=== PATIENT | male | born 1975 | race Caucasian/White ===

== ENCOUNTER 2017-05-18 02:17 | Observation (INO) ==
[2017-05-18] MEDS ORDERED: 0.9 % Sodium Chloride 1,000 ML IVC ONE ×2 (02:54→05:27)
[2017-05-18 02:56] LABS: Basophils % 0.5 %; Eosinophils # 0.1 K/mcL (0.0-0.6); Eosinophils % 1.8 %; Hematocrit 45.6 % (37.5-50.1); Hemoglobin 16.1 g/dL (12.9-16.9); Immature Granulocytes % 0.4 % (0-4); Lymphocytes # 2.5 K/mcL (0.6-4.6); Lymphocytes % 34.1 %; Mean Corpuscular HGB Conc 35.3 g/dL (31.6-35.5); Mean Corpuscular Hemoglobin 31.2 pg (28.0-33.3); Mean Corpuscular Volume 88.4 fL (83.0-100.0); Monocytes # 0.6 K/mcL (0.0-1.3); Monocytes % 7.7 %; Neutrophils # 4.1 K/mcL (1.6-8.9); Platelet Count 187 K/mcL (140-400); Red Blood Count 5.16 M/mcL (4.19-5.50); Red Cell Distribution Width 12.2 % (11.5-14.5); Segmented Neutrophils % 55.5 %
[2017-05-18 03:00] LABS: Bilirubin,Urine Negative (Negative); Blood,Urine Negative (Negative); Clarity,Urine Clear (Clear); Color,Urine Yellow (Yellow); Glucose,Urine (UA) >=1000 mg/dL (Normal); Ketones,Urine Negative (Negative); Leukocyte Esterase,Urine Negative (Negative); Nitrite,Urine Negative (Negative); Protein,Urine Negative (Neg-Trace); Specific Gravity,Urine > 1.030 (1.010-1.025); Urobilinogen,Urine Normal (Normal)
[2017-05-18 03:09] LABS: BUN/Creatinine Ratio 23 (6-26); Blood Urea Nitrogen 22 mg/dL (6-20); Calcium 9.1 mg/dL (8.6-10.3); Carbon Dioxide 24 mEq/L (23-29); Chloride 95 mEq/L (98-107); Glucose 669 mg/dL (70-105); Osmolality,Calculated 299 (280-300); Potassium 3.7 mEq/L (3.5-5.1); Sodium 127 mEq/L (136-145); eGFR For African Americans > 60 (> 60); eGFR For Non-African Americans > 60 (> 60)
[2017-05-18 03:12] LABS: VBG HCO3 26 mEq/L (21-27); VBG PCO2 42 mmHg (41-51); VBG PO2 121 mmHg (25-50)
[2017-05-18 04:06] LABS: Alanine Aminotransferase 26 Units/L (7-52); Albumin 3.8 g/dL (3.5-5.7); Albumin/Globulin Ratio 1.2 (1.1-2.2); Alkaline Phosphatase 149 Units/L (34-104); Aspartate Amino Transferase 18 Units/L (13-39); Bilirubin,Direct 0.1 mg/dL (0.0-0.2); Bilirubin,Indirect 0.2 mg/dL (0.0-1.2); Bilirubin,Total 0.3 mg/dL (0.3-1.0); Globulin 3.3 g/dL (2.4-3.5); Total Protein 7.1 g/dL (6.4-8.9)
[2017-05-18] MEDS ORDERED: *HR* FentaNYL (PF) 100 MCG/2 ML VIAL IVP ONE (05:27)
[2017-05-18] MEDS ORDERED: *HR* Dextrose 50 % in Water (Syg) 50 ML SYRINGE IVP PRN ×2 (05:28→10:37)
[2017-05-18] MEDS ORDERED: Insulin Human Regular 100 UNIT in 0.9 % Sodium Chloride 100 ML IVC SCH (05:30)
--- NOTE | 2017-05-18 05:34 | Emergency Department Note ---
Disposition Clinical Impression: Neurological symptoms, Hyperglycemia, Esophageal spasm Disposition: Admitted As Inpatient Condition: Fair Referrals: Mark Joshua [Primary Care Provider] - Forms: Work/School Release, ED Satisfaction Letter Neuro HPI - General Chief Complaint: ED Neuro Symptoms/Deficit Stated Complaint: generalized weekness for 2 weeks Time Seen by Provider: 05/18/17 02:53 Source: patient, family, EMS Mode of arrival: EMS Limitations: no limitations Nursing Notes Reviewed: Yes Vital Signs Reviewed: Yes - History of Present Illness HPI Narrative: Patient presents for evaluation of worsening neurologic symptoms. Patient states she has had symptoms for 2 weeks. Patient's symptoms have been somewhat intermittent with waxing and waning episodes of weakness to lower extremities. He describes bilateral lower extremity weakness as well as left upper extremity weakness. Left leg is worse than the right leg. The patient states that he initially had symptoms couple weeks ago with trying to get up out of a chair and get around. They have been continuing to monitor the symptoms but tonight he had worsening difficulty. Patient describes no pain. Patient has no cranial nerve deficits. The patient has sensation intact. No loss of bowel or bladder. No fevers. Patient is had no trauma. The patient has had no recent viral illness. Patient describes weakness as not ascending or descending. The patient is concerned because his mother was diagnosed with ALS at age 45. The patient does have absent reflexes and concern for mild clonus to lower extremities. Patient is going to likely need further neurologic evaluation within the hospital setting. CT scan of the head as well as blood work will be performed. - Related Data Home Medications: Home Medications Medication Instructions Recorded Confirmed Amitriptyline [Elavil] 50 mg PO HS 05/18/17 05/18/17 Baclofen [Lioresal] 10 mg PO TID 05/18/17 05/18/17 Diltiazem [Cardizem] 30 mg PO TID 05/18/17 05/18/17 Omeprazole [PriLOSEC] 40 mg PO BID 05/18/17 05/18/17 diazePAM [Valium] 10 mg PO Q6H 05/18/17 05/18/17 Allergies/Adverse Reactions: Allergies Allergy/AdvReac Type Severity Reaction Status Date / Time acetaminophen [From Vicodin] Allergy Itching Verified 12/13/16 00:41 hydrocodone [From Vicodin] Allergy Itching Verified 12/13/16 00:41 metformin [From Glucophage] Allergy Abdominal Verified 12/13/16 00:41 Pain morphine Allergy Hives Verified 12/13/16 00:41 Review of Systems: CONSTITUTIONAL: No weight loss, fever, chills, weakness or fatigue. HEENT: Eyes: No visual changes. Ears, Nose, Throat: No hearing loss, difficulty talking or unable to swallow. SKIN: No rash or itching. CARDIOVASCULAR: No chest pain, chest pressure or chest discomfort. No palpitations or edema. RESPIRATORY: No shortness of breath, cough or sputum. GASTROINTESTINAL: No anorexia, nausea, vomiting or diarrhea. No abdominal pain or blood. GENITOURINARY: No burning on urination or hematuria. NEUROLOGICAL: Lower extremity and left upper extremity weakness No headache, dizziness, syncope. No change in bowel or bladder control. MUSCULOSKELETAL: No muscle pain, back pain, joint pain or stiffness. Past Medical History - Past Medical History Medical history: Reports: diabetes, GERD, other Psychiatric history: Reports: anxiety, depression - Social History Smoking Status: Current some day smoker Alcohol use: Reports: none Drug use: Reports: none Physical Exam General appearance: NAD, conversant Eyes: anicteric sclerae, moist conjunctivae; PERRL HENT: Atraumatic; oropharynx clear with moist mucous membranes and no mucosal ulcerations Neck: Normal inspection; Trachea midline; FROM, supple Lungs: CTA, with normal respiratory effort and no intercostal retractions CV: RRR, no MRGs Abdomen: Soft, non-tender; no rebound or gaurding Extremities: No peripheral edema or extremity lymphadenopathy Skin: Normal temperature; no rash, ulcers or lesions Psych: Appropriate mood and affect Neuro: alert and oriented to person, place and time; patient has no cranial nerve deficits. 2 through 12 intact. Patient has no sensation deficits throughout the upper and lower extremities. Patient has muscle weakness 4 out of 5 to the left upper extremity. 5 out of 5 strength to the right upper extremity. Patient has 4/5 to the right lower extremity. 3 out of 5 strength to the left lower extremity. Absent reflexes to the lower extremities. - General General appearance: alert, in no apparent distress Course - Reevaluation(s) Reevaluation #1: No significant change in patient's course during hospital stay. Patient will need further neurologic evaluation as well as workup. Insulin drip started. Fluids given. - Consultations Consultation #1: Discussed with hospitalist. Pt accepted for admission. Vital Signs Temperature 98.3 F 05/18/17 02:19 Pulse Rate 100 05/18/17 02:19 Respiratory Rate 16 05/18/17 02:19 Blood Pressure 145/94 05/18/17 02:19 O2 Sat by Pulse Oximetry 95 05/18/17 02:19 Temperature 98.3 F 05/18/17 02:19 Pulse Rate 89 05/18/17 07:25 Respiratory Rate 16 05/18/17 07:25 Blood Pressure 129/88 05/18/17 07:25 O2 Sat by Pulse Oximetry 95 05/18/17 07:25 Oxygen Delivery Oxygen Delivery Room Air Neuro Symptoms/Deficit - Medical Records Medical records reviewed: Yes I reviewed the patient's medical records. - Lab Data Lab results reviewed: Yes I reviewed the patient's lab results. Result diagrams: 05/18/17 02:30 05/18/17 02:30 Lab Results 05/18/17 05/18/17 05/18/17 Range/Units 02:23 02:25 02:30 WBC (4.3-11.1) K/mcL RBC (4.19-5.50) M/mcL Hgb (12.9-16.9) g/dL Hct (37.5-50.1) % MCV (83.0-100.0) fL MCH (28.0-33.3) pg MCHC (31.6-35.5) g/dL RDW (11.5-14.5) % Plt Count (140-400) K/mcL MPV (9.4-12.4) fL Immature Gran % (0-4) % Seg Neutrophils % % Lymphocytes % % Monocytes % % Eosinophils % % Basophils % % Neutrophils # (1.6-8.9) K/mcL Lymphocytes # (0.6-4.6) K/mcL Monocytes # (0.0-1.3) K/mcL Eosinophils # (0.0-0.6) K/mcL Basophils # (0.0-0.2) K/mcL VBG pH (7.32-7.42) pH Units VBG pCO2 (41-51) mmHg VBG pO2 (25-50) mmHg VBG HCO3 (21-27) mEq/L Sodium (136-145) mEq/L Potassium (3.5-5.1) mEq/L Chloride (98-107) mEq/L Carbon Dioxide (23-29) mEq/L BUN (6-20) mg/dL Creatinine (0.70-1.30) mg/dL Est GFR ( Amer) (> 60) Est GFR (Non-Af Amer) (> 60) BUN/Creatinine Ratio (6-26) Glucose (70-105) mg/dL POC Glucose > 600 H* > 600 H* (58-89) Calculated Osmolality (280-300) Calcium (8.6-10.3) mg/dL Total Bilirubin (0.3-1.0) mg/dL Direct Bilirubin (0.0-0.2) mg/dL Indirect Bilirubin (0.0-1.2) mg/dL AST (13-39) Units/L ALT (7-52) Units/L Alkaline Phosphatase (34-104) Units/L Serum Total Protein (6.4-8.9) g/dL Albumin (3.5-5.7) g/dL Globulin (2.4-3.5) g/dL Albumin/Globulin Ratio (1.1-2.2) Beta-Hydroxybutyric Acd (0.02-0.27) mmol/L Urine Color Yellow (Yellow) Urine Clarity Clear (Clear) Urine pH 7.0 (5.0-8.0) pH Units Ur Specific [place] > 1.030 H (1.010-1.025) Urine Protein Negative (Neg-Trace) mg/dL Urine Glucose (UA) >=1000 H (Normal) mg/dL Urine Ketones Negative (Negative) mg/dL Urine Blood Negative (Negative) Urine Nitrite Negative (Negative) Urine Bilirubin Negative (Negative) Urine Urobilinogen Normal (Normal) mg/dL Ur Leukocyte Esterase Negative (Negative) Ur Culture Indicated? NO (NO) 05/18/17 05/18/17 05/18/17 Range/Units 02:30 02:30 02:30 WBC 7.3 (4.3-11.1) K/mcL RBC 5.16 (4.19-5.50) M/mcL Hgb 16.1 (12.9-16.9) g/dL Hct 45.6 (37.5-50.1) % MCV 88.4 (83.0-100.0) fL MCH 31.2 (28.0-33.3) pg MCHC 35.3 (31.6-35.5) g/dL RDW 12.2 (11.5-14.5) % Plt Count 187 (140-400) K/mcL MPV 11.0 (9.4-12.4) fL Immature Gran % 0.4 (0-4) % Seg Neutrophils % 55.5 % Lymphocytes % 34.1 % Monocytes % 7.7 % Eosinophils % 1.8 % Basophils % 0.5 % Neutrophils # 4.1 (1.6-8.9) K/mcL Lymphocytes # 2.5 (0.6-4.6) K/mcL Monocytes # 0.6 (0.0-1.3) K/mcL Eosinophils # 0.1 (0.0-0.6) K/mcL Basophils # 0.0 (0.0-0.2) K/mcL VBG pH (7.32-7.42) pH Units VBG pCO2 (41-51) mmHg VBG pO2 (25-50) mmHg VBG HCO3 (21-27) mEq/L Sodium 127 L (136-145) mEq/L Potassium 3.7 (3.5-5.1) mEq/L Chloride 95 L (98-107) mEq/L Carbon Dioxide 24 (23-29) mEq/L BUN 22 H (6-20) mg/dL Creatinine 0.95 (0.70-1.30) mg/dL Est GFR ( Amer) > 60 (> 60) Est GFR (Non-Af Amer) > 60 (> 60) BUN/Creatinine Ratio 23 (6-26) Glucose 669 H* (70-105) mg/dL POC Glucose (58-89) Calculated Osmolality 299 (280-300) Calcium 9.1 (8.6-10.3) mg/dL Total Bilirubin 0.3 (0.3-1.0) mg/dL Direct Bilirubin 0.1 (0.0-0.2) mg/dL Indirect Bilirubin 0.2 (0.0-1.2) mg/dL AST 18 (13-39) Units/L ALT 26 (7-52) Units/L Alkaline Phosphatase 149 H (34-104) Units/L Serum Total Protein 7.1 (6.4-8.9) g/dL Albumin 3.8 (3.5-5.7) g/dL Globulin 3.3 (2.4-3.5) g/dL Albumin/Globulin Ratio 1.2 (1.1-2.2) Beta-Hydroxybutyric Acd 0.07 (0.02-0.27) mmol/L Urine Color (Yellow) Urine Clarity (Clear) Urine pH (5.0-8.0) pH Units Ur Specific [place] (1.010-1.025) Urine Protein (Neg-Trace) mg/dL Urine Glucose (UA) (Normal) mg/dL Urine Ketones (Negative) mg/dL Urine Blood (Negative) Urine Nitrite (Negative) Urine Bilirubin (Negative) Urine Urobilinogen (Normal) mg/dL Ur Leukocyte Esterase (Negative) Ur Culture Indicated? (NO) 05/18/17 05/18/17 05/18/17 Range/Units 03:09 06:28 07:02 WBC (4.3-11.1) K/mcL RBC (4.19-5.50) M/mcL Hgb (12.9-16.9) g/dL Hct (37.5-50.1) % MCV (83.0-100.0) fL MCH (28.0-33.3) pg MCHC (31.6-35.5) g/dL RDW (11.5-14.5) % Plt Count (140-400) K/mcL MPV (9.4-12.4) fL Immature Gran % (0-4) % Seg Neutrophils % % Lymphocytes % % Monocytes % % Eosinophils % % Basophils % % Neutrophils # (1.6-8.9) K/mcL Lymphocytes # (0.6-4.6) K/mcL Monocytes # (0.0-1.3) K/mcL Eosinophils # (0.0-0.6) K/mcL Basophils # (0.0-0.2) K/mcL VBG pH 7.40 (7.32-7.42) pH Units VBG pCO2 42 (41-51) mmHg VBG pO2 121 H (25-50) mmHg VBG HCO3 26 (21-27) mEq/L Sodium (136-145) mEq/L Potassium (3.5-5.1) mEq/L Chloride (98-107) mEq/L Carbon Dioxide (23-29) mEq/L BUN (6-20) mg/dL Creatinine (0.70-1.30) mg/dL Est GFR ( Amer) (> 60) Est GFR (Non-Af Amer) (> 60) BUN/Creatinine Ratio (6-26) Glucose (70-105) mg/dL POC Glucose 319 H 253 H (58-89) Calculated Osmolality (280-300) Calcium (8.6-10.3) mg/dL Total Bilirubin (0.3-1.0) mg/dL Direct Bilirubin (0.0-0.2) mg/dL Indirect Bilirubin (0.0-1.2) mg/dL AST (13-39) Units/L ALT (7-52) Units/L Alkaline Phosphatase (34-104) Units/L Serum Total Protein (6.4-8.9) g/dL Albumin (3.5-5.7) g/dL Globulin (2.4-3.5) g/dL Albumin/Globulin Ratio (1.1-2.2) Beta-Hydroxybutyric Acd (0.02-0.27) mmol/L Urine Color (Yellow) Urine Clarity (Clear) Urine pH (5.0-8.0) pH Units Ur Specific [place] (1.010-1.025) Urine Protein (Neg-Trace) mg/dL Urine Glucose (UA) (Normal) mg/dL Urine Ketones (Negative) mg/dL Urine Blood (Negative) Urine Nitrite (Negative) Urine Bilirubin (Negative) Urine Urobilinogen (Normal) mg/dL Ur Leukocyte Esterase (Negative) Ur Culture Indicated? (NO) - Radiology Data Radiology results reviewed: Yes I reviewed the patient's radiology results. Chest X-Ray 05/18/17 03:02 IMPRESSION: No acute cardiopulmonary abnormality. D/ / Catrachito Dwan MD / Catrachito Dawn MD Interpreting Provider: Catrachito Dawn MD Head CT 05/18/17 03:02 IMPRESSION: No acute intracranial abnormality or mass. If there ongoing concern for stroke, recommend further evaluation with MRI. D/ / Liam Stewart / Liam Stewart Interpreting Provider: Liam Stewart - EKG Data EKG attestation: Yes I reviewed and interpreted this EKG. EKG results narrative: Normal sinus rhythm with a heart rate of 97. No acute ischemic changes with no acute ST segment elevations or depressions. Critical Care Time Critical Care Time: Yes Total Critical Care Time: 40 Attestation: Critical care performed: Time is exclusive of separately billable procedures. Time includes: direct patient care, patient reassessment, coordination of patient care, interpretation of data (laboratory data, radiology data, and respiratory data), review of patient's medical records, medical consultation and documentation of patient care. Procedures included in critical care time: Procedures excluded from critical care time: Attestation Statement - Attestation Attestation: I, Los Elaine MD, personally evaluated this patient and discussed their management with the resident physician. I reviewed the resident's note and agree with the documented findings, medical decision making, and plan of care. 42-year-old male presents to the emergency department with a complaint of increasing generalized weakness in the lower extremities bilaterally in the left upper extremity. Symptoms started about 2 weeks ago. Onset was gradual and it has gradually progressed since onset. Patient states he had a similar episode previously but not as bad and it resolved spontaneously. No history of fall or injury. No back pain. No headaches. Patient states over the past 2 days it has gotten to the point that he is unable to walk due to the weakness in his lower extremities. No difficulty with urination or bowel movements. No fever. No numbness, just weakness. On examination patient is a well-developed well-nourished male in no acute distress. He is alert and oriented 3. There is no cyanosis or diaphoresis. Breath sounds are clear and equal bilaterally. Heart regular rate and rhythm. Abdomen soft and nontender with normal bowel sounds. 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 Marked weakness of the left lower extremity and he is barely able to lift it off the bed. Mild weakness of the right lower extremity DTRs are decreased in the lower extremities bilaterally. Sensation intact. Labs reviewed. Glucose 669. Chest x-ray negative. Head CT shows no acute intracranial abnormality. EKG shows a normal sinus rhythm with a heart rate of 97. No acute ST elevation or depression noted. Patient was placed on an insulin drip. The hospitalist was consulted and accepted admission of the patient.
[2017-05-18] MEDS ORDERED: 0.9 % Sodium Chloride 1,000 ML ONE (06:22)
[2017-05-18] MEDS ORDERED: 0.9 % Sodium Chloride 1,000 ML IVC SCH (06:45)
[2017-05-18] MEDS ORDERED: Naloxone 0.4 MG/ML INJ IVP PRN (08:37)
[2017-05-18] MEDS ORDERED: Ondansetron 4 MG/2 ML VIAL IVP PRN (08:37)
[2017-05-18] MEDS ORDERED: Ibuprofen 600 MG TABLET PO PRN (08:45)
--- NOTE | 2017-05-18 09:40 | Internal Med History&Physical ---
Date of Encounter: 05/18/17 Time of Encounter: 09:38 Assessment and Plan (1) Left-sided weakness Current visit: Yes Status: Acute Subacute onset over the last 2 weeks. Differential diagnosis includes stroke, GBS and tho unlikely there is a possibility of Alyssa Poon given his history of smoking. Could also be secondary to radiculopathy due to degenerative disc disease of the lumbar spine. We will obtain MRI of the brain, MRI of C-spine, T-spine and L-spine. Consult neurology. Continue with neuro checks. (2) Type 2 diabetes mellitus with hyperglycemia Current visit: Yes Status: Acute His initial blood glucose was greater than 600. He was not in DKA. He reports having type 2 diabetes diet control however admits to dietary indiscretion. I have counseled him regarding importance of diabetic diet. He initially received treatment with insulin drip. Currently his glucose is less than 150. We will start diabetic diet and insulin. Sliding scale. Qualifiers: Diabetes mellitus assistant terminal manager insulin use: without mcc use Qualified Code(s): E11.65 - Type 2 diabetes mellitus with hyperglycemia (3) Tobacco abuse Current visit: Yes Status: Acute I have advised smoking cessation and providing counseling. (4) DVT prophylaxis Current visit: Yes Status: Acute He has decreased mobility due to lower extremity weakness and possibility of stroke. He is at high risk for DVT and therefore will provide prophylaxis with Lovenox. (5) Hyperglycemia Current visit: Yes Status: Acute Internal Medicine - H&P: HPI Chief complaint: Lower extremity weakness Admitted From: Emergency Dept Plans for Post Hospital Care: Home History of present illness: Mr. Bucio is a 42 year old male with past medical history significant for esophageal spasm, diet-controlled diabetes mellitus, GERD, anxiety and depression who presented to the hospital for evaluation of bilateral lower extremity weakness that started 2 weeks ago. He reports progressive symptoms over the last 2 weeks predominantly involving the left lower extremity and left upper extremity. His weakness was severe in the lower extremities to the point where he could not walk, could not stand from a seated position and had to crawl to the bathroom. He denies associated bowel and bladder incontinence, headache, vision changes, denies associated fevers chills and skin rashes. Denies recent trauma, denies back pain and neck pain. Denies cough and shortness of breath but reports chronic, unchanged chest pain and difficulty swallowing related to his long-standing diagnosis of nutcracker esophagus. 10 point review of systems was negative except as described above. Surgical history: Carpal tunnel release on the left, esophageal surgery. Family history: Pertinent for ALS and the patient's mother who was diagnosed at age 45 and at age 51. 2 maternal uncles reportedly suffered with ALS. Patient's father suffered with stroke and throat cancer. Social history: He smokes 10 cigarettes a day, smokes marijuana to help with his esophageal spasm, denies intravenous drug use, does not drink alcohol. He is on disability. Past Med Surg Social Fam HX - Past Medical History Medical history: diabetes, GERD, other Psychiatric history: anxiety, depression - Social History Smoking Status: Current some day smoker Alcohol use: none Drug use: none - Family History Father Adopted: No Hx Family Cardiac Disorders: Yes (CAD, CABG, PAD) Hx Family Neurologic Disorders: Yes (CVA, multiple) Mother Living Status: Hx Family Neurologic Disorders: Yes (ALS diagnosed at the age of 45) Internal Medicine - H&P: Meds Amitriptyline [Elavil] 50 mg PO HS 05/18/17 [History] Baclofen [Lioresal] 10 mg PO TID 05/18/17 [History] Diltiazem [Cardizem] 30 mg PO TID 05/18/17 [History] Omeprazole [PriLOSEC] 40 mg PO BID 05/18/17 [History] diazePAM [Valium] 10 mg PO Q6H 05/18/17 [History] 3 Allergy/AdvReac Type Severity Reaction Status Date / Time acetaminophen [From Vicodin] Allergy Itching Verified 12/13/16 00:41 hydrocodone [From Vicodin] Allergy Itching Verified 12/13/16 00:41 metformin [From Glucophage] Allergy Abdominal Verified 12/13/16 00:41 Pain morphine Allergy Hives Verified 12/13/16 00:41 All Systems PM: A 10-system review of systems was performed and is negative for pertinent findings except as documented above in the HPI. - Constitutional Vitals: Temp Pulse Resp BP Pulse Ox 98.1 F 91 16 130/85 95 05/18/17 08:21 05/18/17 08:21 05/18/17 08:21 05/18/17 08:21 05/18/17 08:21 General appearance: Present: A&O X 3, no acute distress, answers questions appropriately - Head Head exam: Present: atraumatic, normocephalic - Eye Eye exam: Present: EOMI, PERRL, conjuntiva pink, sclera anicteric. Absent: conjunctival injection, nystagmus, periorbital swelling, scleral icterus Pupils: Present: PERRL - Neck Neck exam general surgery: Present: supple, trachea midline. Absent: lymphadenopathy - Respiratory Respiratory exam: Present: CTAB. Absent: accessory muscle use, rales, rhonchi, wheezes - Cardiovascular Cardiovascular exam: Present: RRR, +S1, +S2. Absent: diastolic murmur, gallop, rubs, systolic murmur - GI/Abdominal GI/Abdominal exam: Present: normal bowel sounds, soft, no peritoneal signs. Absent: distended, tenderness - Extremities Exam Extremities exam: Present: warm, radial pulses palpable and symmetrical. Absent : calf tenderness, cyanotic, pedal edema - Neurological Exam Neurological exam: Present: CN II-XII intact, oriented X3, reflexes normal, no focal deficits, pronater drift (Mild left upper extremity pronator drift). Absent: facial droop, speech deficit Additional comments: Sensation to light touch is intact. There is decreased left rug dyer strength. Decreased left lower extremity muscle strength 4/5 right lower extremity 5/5, Internal Med - H&P Results - Labs CBC & Chem 7: 05/19/17 03:50 05/19/17 03:50 - EKG Data -: EKG Interpreted by Myself EKG shows normal: sinus rhythm, ST-T waves
[2017-05-18 09:43] LABS: Hemoglobin A1C 8.4 %
[2017-05-18 09:51] LABS: BUN/Creatinine Ratio 25 (6-26); Blood Urea Nitrogen 19 mg/dL (6-20); Calcium 8.8 mg/dL (8.6-10.3); Carbon Dioxide 27 mEq/L (23-29); Chloride 106 mEq/L (98-107); Glucose 82 mg/dL (70-105); Magnesium 1.6 mg/dL (1.6-2.6); Osmolality,Calculated 289 (280-300); Phosphorous 3.3 mg/dL (2.7-4.5); Potassium 3.2 mEq/L (3.5-5.1); Sodium 139 mEq/L (136-145); eGFR For African Americans > 60 (> 60); eGFR For Non-African Americans > 60 (> 60)
[2017-05-18] MEDS ORDERED: Dextrose Gel 15 GM/37.5 ML TUBE PO PRN ×2 (10:37)
[2017-05-18] MEDS ORDERED: D5% in Water 1,000 ML IVC PRN (10:37)
--- NOTE | 2017-05-18 11:37 | Neurology - Consult Note ---
<Lorenzo Montoya - Last Filed: 05/18/17 15:05> Date of Encounter: 05/18/17 Time of Encounter: 11:00 Assessment and Plan (1) Left-sided weakness Current Visit: Yes Status: Acute Mr. Bucio presents with 2 weeks of progressive weakness in his left lower and left upper extremity. His symptoms demonstrate weakness with hip extension , knee flexion and dorsi flexion of his left lower extremity. He also demonstrates diminished sensation to light touch of his left upper and lower extremity with also abnormal feeling to dull and sharp pinprick to left upper and lower extremity. - Deep tendon reflexes are 2+ and bilateral brachial brachial radialis, triceps , patellar, Achilles with no clonus in bilateral lower extremities. - Cranial nerves II through XII intact, sensation in the trigeminal distribution is intact bilaterally Potential diminished sensation in left upper and lower extremities, associated with diminished hip extension and knee flexion and dorsiflexion of the left lower extremity are not specific. There is a significant history of ALS in his mother does pose a risk for neurologic origin, yet current symptoms do not completely correlate as they are one sided. Plan: - Continue to monitor symptoms. - Primary team has ordered MRI studies of the C,T,L spine and will await results. History of Present Illness Chief complaint: left sided weakness HPI: Mr. Bucio is a 42 year old male predominantly right-handed, with no significant past neurologic history presented to the emergency department with progressively of weakness in his left upper and lower extremities over the past 2 weeks. He stated that roughly 2 weeks ago he started having difficulty with long distances having weakness in his lower left extremity that would give out sporadically. Over the past week he has noticed considerable diminish ability to perform activities including standing or walking even short distances. He eventually became very weak in both legs left more so than the right and would fall to the ground even having to crawl to the bathroom. He felt that he had difficulty lifting objects even of light weights including mugs without having considerable weakness using his left upper extremity. His weakness in his left extremities became so profound that he felt that it was necessary to be seen emergency department. He started developing tingling and numbness in his distal left fingers but no other parts of his body. He says that he has decreased sensation in his left upper extremity and left lower extremity that he did not have prior. He denies any trauma, injuries, falls, chronic back pain besides a previous diagnosis of scoliosis. Of significance he says that his mother had ALS diagnosed at 45 is now , father has very high lipids , peripheral artery disease, CAD and previous CABG. He denies ever having high cholesterol and heart problems, vascular problems or previous neurologic symptoms. He denies any fevers, chills, diaphoresis, nausea vomiting diarrhea constipation. 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 Past Med Surg Social Fam HX - Past Medical History Medical history: diabetes, GERD, other Psychiatric history: anxiety, depression - Social History Smoking Status: Current some day smoker Alcohol use: none Drug use: none - Family History Father Adopted: No Hx Family Cardiac Disorders: Yes (CAD, CABG, PAD) Hx Family Neurologic Disorders: Yes (CVA, multiple) Mother Living Status: Hx Family Neurologic Disorders: Yes (ALS diagnosed at the age of 45) Medications and Allergies Amitriptyline [Elavil] 50 mg PO HS 05/18/17 [History] Baclofen [Lioresal] 10 mg PO TID 05/18/17 [History] Diltiazem [Cardizem] 30 mg PO TID 05/18/17 [History] Omeprazole [PriLOSEC] 40 mg PO BID 05/18/17 [History] diazePAM [Valium] 10 mg PO Q6H 05/18/17 [History] 3 Allergy/AdvReac Type Severity Reaction Status Date / Time acetaminophen [From Vicodin] Allergy Itching Verified 12/13/16 00:41 hydrocodone [From Vicodin] Allergy Itching Verified 12/13/16 00:41 metformin [From Glucophage] Allergy Abdominal Verified 12/13/16 00:41 Pain morphine Allergy Hives Verified 12/13/16 00:41 All Systems: A 10-system review of systems was performed and is negative for pertinent findings except as documented above in the HPI. - Constitutional Constitutional ROS IM: as per HPI, frequent falls, weakness - Nose, Mouth, Throat Nose, mouth and throat: no abnormal hearing, no facial pain, no headache(s), no neck mass - Cardiovascular Cardiovascular ROS IM: no chest pain, no chest pain at rest, no chest pain with activity, no claudication, no irregular heart rhythm, no pedal edema, no rapid heart rate, no syncope - Respiratory Respiratory IM: no cough, no dyspnea, no hemoptysis, no dyspnea on exertion, no wheezing - Gastrointestinal Gastrointestinal: no constipation, no diarrhea, no nausea, no vomiting - Musculoskeletal Musculoskeletal ROS IM: muscle weakness, numbness, tingling, no deformity, no joint swelling, no muscle cramps, no neck pain - Neurological Neurological ROS: abnormal gait, focal weakness, frequent falls, numbness, sensory deficit, tingling, no abnormal hearing, no abnormal movements, no confusion, no convulsions, no disequilibrium, no dizziness, no headache(s), no lack of coordination, no loss of vision, no memory loss, no restless legs Physical Examination - Vital Signs Vital Signs: Initial Vital Signs Temp Pulse Resp BP Pulse Ox 98.3 F 100 16 145/94 95 05/18/17 02:19 05/18/17 02:19 05/18/17 02:19 05/18/17 02:19 05/18/17 02:19 - Constitutional General appearance: comfortable - Neurologic Detailed motor examination: other (Patient demonstrates diminished strength with hip extension and knee flexion on the left side and dorsi flexion of the left foot with strength 3/5.) Motor examination - right side: 5/5: deltoids, biceps, triceps, wrist flexion, wrist extension, professor of voice, hip flexors, tibialis Anterior, quadriceps, toe extension (EHL), plantarflexion Motor examination - left side: 3/5: quadriceps, toe extension (EHL), 5/5: deltoids, biceps, triceps, wrist flexion, wrist extension, hip flexors, professor of voice, tibialis Anterior, plantarflexion Detailed sensory examination: other (CN II-VII intact. Patient demonstrates diminished sensation on left upper and left lower extremity, difficulty with dull versus sharp on left upper and left lower extremities. Sensation trigeminal nerve pattern symmetric and equal. ) Reflex and gait examination: intact Reflexes: Biceps: 2+, Triceps: 2+, Brachioradialis: 2+, Patella: 2+, Achilles: 2 + Mental Status Examination: awake, alert, oriented to person, oriented to place, oriented to time, follows commands appropriately, answers questions appropriately, no agnosia, no aphasia, no aproxia, lucid, opens eyes to voice Cranial nerve examination: PERRL, EOMI, visual boyle intact, mastication intact , no facial asymmetry is present, no dysarthria, hearing is intact symmetrically , soft palate elevates bilaterally upon phonation, tongue protrudes midline Cerebellar examination: performs finger to nose and heel to cullen symmetrically without ataxia Results - Laboratory Findings CBC and BMP: 05/18/17 02:30 05/18/17 09:02 Abnormal lab findings: Abnormal lab results VBG pO2 121 mmHg (25-50) H 05/18/17 03:09 Potassium 3.2 mEq/L (3.5-5.1) L 05/18/17 09:02 POC Glucose 119 (58-89) H 05/18/17 08:01 Hemoglobin A1c 8.4 % (-5.6) H 05/18/17 09:02 Alkaline Phosphatase 149 Units/L (34-104) H 05/18/17 02:30 Ur Specific [place] > 1.030 (1.010-1.025) H 05/18/17 02:30 Urine Glucose (UA) >=1000 mg/dL (Normal) H 05/18/17 02:30 Consult Discharge Plan - Plan Referrals: Mark Joshua [Primary Care Provider] - 05/27/17 2:00 pm <Adeola Riddle I - Last Filed: 05/18/17 19:24> Date of Encounter: 05/18/17 History of Present Illness HPI: Mr. Bucio is a 42 year old male All Systems: A 10-system review of systems was performed and is negative for pertinent findings except as documented above in the HPI. Physical Examination - Vital Signs Vital Signs: Initial Vital Signs Temp Pulse Resp BP Pulse Ox 98.3 F 100 16 145/94 95 05/18/17 02:19 05/18/17 02:19 05/18/17 02:19 05/18/17 02:19 05/18/17 02:19 Results - Laboratory Findings CBC and BMP: 05/18/17 02:30 05/18/17 09:02 Abnormal lab findings: Abnormal lab results ESR 14 mm/hr (0-10) H 05/18/17 11:33 VBG pO2 121 mmHg (25-50) H 05/18/17 03:09 Potassium 3.2 mEq/L (3.5-5.1) L 05/18/17 09:02 POC Glucose 119 (58-89) H 05/18/17 08:01 Hemoglobin A1c 8.4 % (-5.6) H 05/18/17 09:02 Alkaline Phosphatase 149 Units/L (34-104) H 05/18/17 02:30 Creatine Kinase 234 Units/L (30-223) H 05/18/17 11:33 Ur Specific [place] > 1.030 (1.010-1.025) H 05/18/17 02:30 Urine Glucose (UA) >=1000 mg/dL (Normal) H 05/18/17 02:30 - Attending Attestation pt seen and Examined agree with Resident Documentation, on my examination pt dont have any focal findings NO WEAKNESS in any extremities , no sensory defecit per pt when he was on MRI table he felt a pop in his back and than he started moving , and all of sudden all weakness has gone. and he is back to normal strongly suspect significant psychological aspect in his symptoms there is NO neurological condition that can improve just after lying on MRI table that quick regardless as he is back to normal , OK to discharge from neuro stand point Adeola Riddle MD
[2017-05-18] MEDS: *HR* FentaNYL (PF) 100 MCG/2 ML VIAL IVP PRN ×3 (11:47→20:24)
--- NOTE | 2017-05-18 14:31 | Electrocardiograph Report ---
[address] [place], [place] [address] Test Date: 2017-05-18 Pat Name: Iam Bucio Department: 102 Room: 2N07 Gender: M Revenue Specialist: Kam : 1975 Requested By: [place] Order Number: [id number] Reading MD: Karmen Suarez Measurements Intervals Maria Stein Rate: 97 P: 30 CA: 146 QRS: 3 QRSD: 106 T: 13 QT: 336 QTc: 391 Interpretive Statements SINUS RHYTHM MINIMAL VOLTAGE CRITERIA FOR LVH, CONSIDER NORMAL VARIANT POSSIBLE ANTERIOR MYOCARDIAL INFARCTION, OF INDETERMINATE AGE Electronically Signed On 05-18-2017 14:30:09 EST by Karmen Suarez
[2017-05-18] MEDS: Insulin LISPRO 300 UNITS/3 ML VIAL SQ SCH ×3 (14:41→23:27)
[2017-05-18] MEDS: Baclofen 10 MG TABLET PO SCH ×3 (14:42→20:14)
[2017-05-18] MEDS: diazePAM 10 MG TABLET PO SCH ×3 (14:42→20:14)
[2017-05-18] MEDS ORDERED: *HR* OxyCODONE Immed Rel 5 MG TABLET PO ONE (22:28)
[2017-05-19] MEDS: diazePAM 10 MG TABLET PO SCH ×2 (03:52→08:47)
[2017-05-19] MEDS: *HR* FentaNYL (PF) 100 MCG/2 ML VIAL IVP PRN ×4 (03:57→13:27)
[2017-05-19 04:04] LABS: Basophils # 0.1 K/mcL (0.0-0.2); Basophils % 0.7 %; Eosinophils # 0.3 K/mcL (0.0-0.6); Eosinophils % 3.7 %; Hematocrit 44.4 % (37.5-50.1); Hemoglobin 15.6 g/dL (12.9-16.9); Immature Granulocytes % 0.4 % (0-4); Lymphocytes % 41.9 %; Mean Corpuscular HGB Conc 35.1 g/dL (31.6-35.5); Mean Corpuscular Hemoglobin 31.2 pg (28.0-33.3); Mean Corpuscular Volume 88.8 fL (83.0-100.0); Mean Platelet Volume 10.3 fL (9.4-12.4); Monocytes # 0.5 K/mcL (0.0-1.3); Monocytes % 7.1 %; Neutrophils # 3.3 K/mcL (1.6-8.9); Platelet Count 188 K/mcL (140-400); Red Cell Distribution Width 12.8 % (11.5-14.5); Segmented Neutrophils % 46.2 %
[2017-05-19] MEDS ORDERED: *HR* OxyCODONE Immed Rel 5 MG TABLET PO ONE (04:38)
[2017-05-19 04:46] LABS: BUN/Creatinine Ratio 22 (6-26); Blood Urea Nitrogen 17 mg/dL (6-20); Calcium 8.7 mg/dL (8.6-10.3); Carbon Dioxide 26 mEq/L (23-29); Chloride 106 mEq/L (98-107); Glucose 168 mg/dL (70-105); Osmolality,Calculated 289 (280-300); Sodium 137 mEq/L (136-145); eGFR For African Americans > 60 (> 60); eGFR For Non-African Americans > 60 (> 60)
[2017-05-19] MEDS ORDERED: *HR* Enoxaparin 40 MG/0.4 ML SYRINGE SQ SCH (06:00)
[2017-05-19] MEDS: Insulin LISPRO 300 UNITS/3 ML VIAL SQ SCH ×2 (08:47→11:15)
[2017-05-19] MEDS: Baclofen 10 MG TABLET PO SCH (08:47)
--- NOTE | 2017-05-19 10:38 | Neurology Progress Note ---
<Lorenzo Montoya - Last Filed: 05/19/17 10:34> Date of Encounter: 05/19/17 Time of Encounter: 10:34 Assessment and Plan (1) Left-sided weakness Current Visit: Yes Status: Acute Mr. Bucio presents with 2 weeks of progressive weakness in his left lower and left upper extremity. On initial assessment he complained of decreased sensation of both left sided extremities with non specific weakness in his left lower extremity. He says that when he went for his MRI he felt a pop in his back and all of his neurologic symptoms spontaneously resolved. Follow up physical examination is negative for any neurologic abnormalities. Imaging studies reviewed with only findings of mild DDD. - No new changes over night. Plan: - At this time it appears that his symptoms have resolved and neurologic exam is negative for acute or concerning findings. Please contact if any further neurologic concerns arise. Subjective Principal diagnosis: left sided weakness Interval history: Mr. Bucio has been seen and evaluated at patient bedside. He denies any recurrence of loss of muscle strength of return of diminished sensation in his left extremities. He maintains his normal strength and sensation. No acute events over night. Objective - Constitutional Vitals: Temp Pulse Resp BP Pulse Ox 98.0 F 67 18 115/74 95 05/19/17 07:28 05/19/17 07:28 05/19/17 07:28 05/19/17 07:30 05/19/17 07:28 General appearance: Present: cooperative, A&O X 3, no acute distress, answers questions appropriately - Head Head exam: Present: atraumatic, normocephalic - Eye Eye exam: Present: PERRL, conjuntiva pink, sclera anicteric Pupils: Present: PERRL - Extremities Exam Extremities exam: Present: warm, radial pulses palpable and symmetrical. Absent : calf tenderness, cyanotic, pedal edema - Neurological Exam Sensorimotor examination: Present: intact Motor Examination: Present: grossly full strength in all extremities, full strength in all major muscle groups, other (Patient demonstrates diminished strength with hip extension and knee flexion on the left side and dorsi flexion of the left foot with strength 3/5.) Motor examination - right side: 5/5: deltoids, biceps, triceps, wrist flexion, wrist extension, regional controller, hip flexors, tibialis Anterior, quadriceps, toe extension (EHL), plantarflexion Motor examination - left side: 5/5: deltoids, biceps, triceps, wrist flexion, wrist extension, hip flexors, regional controller, quadriceps, tibialis Anterior, toe extension (EHL), plantarflexion Sensation intact: Present: intact Reflex and gait examination: intact Reflexes: Biceps: 2+, Triceps: 2+, Brachioradialis: 2+, Patella: 2+, Achilles: 2 + Mental Status Examination: Present: awake, alert, oriented to person, oriented to place, oriented to time, follows commands appropriately, answers questions appropriately, no agnosia, no aphasia, no aproxia, lucid, opens eyes to voice Cranial nerve examination: Present: PERRL, EOMI, visual boyle intact, mastication intact, no facial asymmetry is present, no dysarthria, hearing is intact symmetrically, soft palate elevates bilaterally upon phonation, tongue protrudes midline Cerebellar examination: Present: performs finger to nose and heel to cullen symmetrically without ataxia Results - Laboratory Findings CBC and BMP: 05/19/17 03:50 05/19/17 03:50 Abnormal lab findings: Abnormal lab results ESR 14 mm/hr (0-10) H 05/18/17 11:33 VBG pO2 121 mmHg (25-50) H 05/18/17 03:09 Glucose 168 mg/dL (70-105) H 05/19/17 03:50 POC Glucose 243 (58-89) H 05/18/17 23:26 Hemoglobin A1c 8.4 % (-5.6) H 05/18/17 09:02 Alkaline Phosphatase 149 Units/L (34-104) H 05/18/17 02:30 Creatine Kinase 234 Units/L (30-223) H 05/18/17 11:33 Ur Specific [place] > 1.030 (1.010-1.025) H 05/18/17 02:30 Urine Glucose (UA) >=1000 mg/dL (Normal) H 05/18/17 02:30 Consult Discharge Plan - Plan Referrals: Mark Joshua [Primary Care Provider] - 05/27/17 2:00 pm <Adeola Riddle I - Last Filed: 05/19/17 15:42> Date of Encounter: 05/19/17 Assessment and Plan (1) Left-sided weakness Current Visit: Yes Status: Acute Pt seen and examined whole spine MRI looks normal except T SPINE that showed No acute abnormality in the thoracic spine. Disc protrusions most pronounced at T3-4, indenting upon the thoracic spinal cord. No spinal canal or foraminal stenosis in the thoracic spine. No definite abnormal cord signal is seen. dont think need any surgical intervention at this time no focal defecit or change in reflexes noted on exam, if pt is conern can see Spine surgeon as out patient Adeola Riddle MD Objective - Constitutional Vitals: Temp Pulse Resp BP Pulse Ox 98.0 F 75 18 123/79 95 05/19/17 11:02 05/19/17 11:02 05/19/17 11:02 05/19/17 11:02 05/19/17 11:02 Results - Laboratory Findings CBC and BMP: 05/19/17 03:50 05/19/17 03:50 Abnormal lab findings: Abnormal lab results ESR 14 mm/hr (0-10) H 05/18/17 11:33 VBG pO2 121 mmHg (25-50) H 05/18/17 03:09 Glucose 168 mg/dL (70-105) H 05/19/17 03:50 POC Glucose 243 (58-89) H 05/18/17 23:26 Hemoglobin A1c 8.4 % (-5.6) H 05/18/17 09:02 Alkaline Phosphatase 149 Units/L (34-104) H 05/18/17 02:30 Creatine Kinase 234 Units/L (30-223) H 05/18/17 11:33 Ur Specific [place] > 1.030 (1.010-1.025) H 05/18/17 02:30 Urine Glucose (UA) >=1000 mg/dL (Normal) H 05/18/17 02:30
[2017-05-19 15:57] VITALS: BP 117/72
[2017-05-19] MEDS ORDERED: Nitroglycerin 0.4 MG TAB.SUBL SL PRN (16:10)
[2017-05-19] MEDS ORDERED: Insulin LISPRO 300 UNITS/3 ML VIAL SQ SCH ×2 (16:30→21:00)
--- NOTE | 2017-05-19 19:11 | Discharge Summary ---
Date of Encounter: 05/19/17 Time of Encounter: 11:00 - Discharge Diagnosis (1) Neurological symptoms Priority: Primary Status: Acute - Discharge Medications Home Medications: Amitriptyline [Elavil] 50 mg PO HS 05/18/17 [History] Baclofen [Lioresal] 10 mg PO TID 05/18/17 [History] Diltiazem [Cardizem] 30 mg PO TID 05/18/17 [History] Omeprazole [PriLOSEC] 40 mg PO BID 05/18/17 [History] diazePAM [Valium] 10 mg PO Q6H 05/18/17 [History] Allergies/Adverse Reactions: 3 Allergy/AdvReac Type Severity Reaction Status Date / Time acetaminophen [From Vicodin] Allergy Itching Verified 12/13/16 00:41 hydrocodone [From Vicodin] Allergy Itching Verified 12/13/16 00:41 metformin [From Glucophage] Allergy Abdominal Verified 12/13/16 00:41 Pain morphine Allergy Hives Verified 12/13/16 00:41 Procedures/tests Complete & Pending: Procedures Performed prior 72 hours Category Date Time Status CT chest w/o contrast [CT chest wo con] [CT] Stat Cat Scan 05/18/17 10:35 Completed MR cervical spine wo con [MR] Stat MRI 05/18/17 10:29 Completed MR head/brain wo con [MR] Stat MRI 05/18/17 10:28 Completed MR lumbar spine wo con [MR] Stat MRI 05/18/17 10:30 Completed MR thoracic spine wo con [MR] Stat MRI 05/18/17 10:30 Completed EKG [ECG 12 lead ECG] [ECG] Stat Y 05/19/17 16:09 Ordered Date of admission: 05/18/17 08:37 Primary care physician: Mark Joshua Consults: 05/18/17 09:20 Consult to Account Specialist [CONS] Routine Reason for SW Consult: discharge planning 05/18/17 10:31 Consult to Neurology [CONS] Stat Consulting Provider: [facility] Reason for Consult: Left-sided weakness Time Notified: 10:32 Call Completed: Yes 05/18/17 10:47 Consult to Invasive Line Access Team [CONS] Routine Reason for Consult: limited vascular access Line Type: EPIV 05/18/17 15:16 Consult to Occupational Therapy [CONS] Routine Comment: Evaluate, develop and implement POC Reason for Consult: discharge planning Consult to Physical Therapy [CONS] Routine Comment: Evaluate, develop and implement POC Reason for Consult: discharge planning 05/19/17 10:43 PT [Consult to Physical Therapy] [CONS] Routine Comment: Evaluate, develop and implement POC Reason for Consult: evaluate for rehab prior to discharge - Patient Status Disposition: Left Against Medical Advice Condition: Fair - Discharge Instructions Follow Up With: Mark Johsua [Primary Care Provider] - 05/27/17 2:00 pm Hospital course: Patient is a 42 year old male with past medical history significant for esophageal spasm, diet-controlled diabetes mellitus, GERD, anxiety and depression who presented to the hospital for evaluation of bilateral lower extremity weakness that started 2 weeks ago. He reports progressive symptoms over the last 2 weeks predominantly involving the left lower extremity and left upper extremity. His weakness was severe in the lower extremities to the point where he could not walk, could not stand from a seated position and had to crawl to the bathroom. He denies associated bowel and bladder incontinence, headache, vision changes, denies associated fevers chills and skin rashes. Denies recent trauma, denies back pain and neck pain. Patient was admitted to medical surgical floor for further workup. Neurology was consulted and workup completed with no acute findings Patient became upset because IV pain medications were discontinued for symptoms of his nutcracker esophagus; he left AGAINST MEDICAL ADVICE - Time Spent with Patient Total time spent providing and/or coordinating discharge services: Less than 30 minutes - Constitutional Vitals: Temp Pulse Resp BP Pulse Ox 98.0 F 72 18 117/72 96 05/19/17 15:57 05/19/17 15:57 05/19/17 15:57 05/19/17 15:57 05/19/17 15:57 General appearance: Present: A&O X 3, no acute distress, answers questions appropriately - Respiratory Respiratory exam: Present: CTAB. Absent: accessory muscle use, rales, rhonchi, wheezes - Cardiovascular Cardiovascular exam: Present: RRR, +S1, +S2. Absent: diastolic murmur, gallop, rubs, systolic murmur
--- NOTE | 2017-05-26 01:56 | Electrocardiograph Report ---
[address] [address] Test Date: 2017-05-19 Pat Name: Iam Bucio Department: 110 Room: 2N07 Gender: M E Business Consultant: : 1975 Requested By: Lito Bahena Order Number: [id number] Reading MD: Karmen Suarez Measurements Intervals [place] Rate: 84 P: 37 IA: 146 QRS: 4 QRSD: 101 T: 6 QT: 359 QTc: 401 Interpretive Statements SINUS RHYTHM Electronically Signed On 05-26-2017 1:55:06 EST by Karmen Suarez
== END 2017-05-19 16:45 | disposition left against medical advice (07) | DRG 861 ==
LOC: 2NNU 02:17 → EMEROO 02:17 → 2NNU 08:07
PROVIDERS: ADMIT Internal Medicine; ATTEND Hospitalist